=== PATIENT | male | born 1940 | race Caucasian/White ===

== ENCOUNTER → 2016-07-18 | Outpatient (CLI) | payer OTHER | END | disposition home or self-care (01) | LOC: GMAM 10:33 | PROVIDERS: ATTEND Family Medicine | DX: Z12.5 Encounter for screening for malignant neoplasm of prostate (principal); I10 Essential (primary) hypertension; E03.4 Atrophy of thyroid (acquired) | CPT/HCPCS: 84439; 84443; G0103 ==

== ENCOUNTER → 2016-07-19 | Outpatient (CLI) | payer OTHER | LOC: GMAM 16:41 | PROVIDERS: ATTEND Family Medicine | DX: M25.9 Joint disorder, unspecified (principal) ==

== ENCOUNTER → 2016-07-22 | Outpatient (CLI) | payer OTHER, MEDICARE ==
--- NOTE | 2016-07-22 10:56 | US ---
EXAM DESCRIPTION: Aorta CLINICAL HISTORY: 76 years,Male,AAA SCREEN TOBACCO USE COMPARISON: None TECHNIQUE: Multiple real-time sonographic images were obtained of the aorta and with duplex Doppler. FINDINGS: The abdominal aorta demonstrates mild diffuse plaques. No stenoses or aneurysms.]. The proximal aorta measures 2.1 cm. The mid aorta measures two cm. And the distal aorta measures 1.7 cm . No free fluid about the aorta. The common iliac arteries are unremarkable. IMPRESSION: Mild diffuse plaques in aorta. No aneurysms or stenoses. Electronically signed by: Rl Cancohla MD 07/22/2016 10:56 AM CDT
== END | disposition home or self-care (01) ==
LOC: US 08:13
PROVIDERS: ATTEND Family Medicine
DX: F17.210 Nicotine dependence, cigarettes, uncomplicated (principal)

== ENCOUNTER 2016-08-28 20:57 | Emergency (ER) | payer MEDICARE, OTHER ==
[2016-08-28] MEDS ORDERED: CYCLOBENZAPRINE HCL 5 MG TAB PO ONE (21:22)
[2016-08-28] MEDS ORDERED: ACETAMINOPHEN W/COD #3 TAB 1 EA TAB PO ONE (21:22)
[2016-08-28] MEDS ORDERED: CYCLOBENZAPRINE HCL 10 MG TAB ONE (21:24)
--- NOTE | 2016-08-28 21:25 | ED.PDOC ---
History of Present Illness - General Chief Complaint: Back Pain or Injury Stated Complaint: low back pain Time Seen by Provider: 08/28/16 20:57 Source: patient, RN notes reviewed, Vital Signs reviewed, family Exam Limitations: no limitations - History of Present Illness Initial Comments: Patient reports he bent over in the shower this morning and had a sudden onset of low back pain. The pain is worse when he is standing up and walking and better when he is laying down. No radiation of the pain. No numbness, tingling, weakness or incontinence. Daughter reports he is not standing up straight, he says that makes his back feel better. He has a history of L3-5 fusion with herniated discs @ L1 & 2. He does not normally have pain and does not usually take pain medications. He did take some Tylenol earlier today. Timing/Duration: 7-24 hours Quality/Severity: moderate Back Pain Location: lumbar spine, paraspinous muscles Back Pain Radiation: other - None Method of Injury/Prior Injury: other - bent over Improving Factors: rest, other - laying down Worsening Factors: movement - standing and walking Associated Symptoms: denies symptoms Allergies/Adverse Reactions: Allergies Morphine Allergy (Verified 08/28/16 21:25) Home Medications: Ambulatory Orders Aspirin [Baby Aspirin] 81 mg PO DAILY 07/05/14 Calcium 1 each PO BID 07/05/14 Calcium Polycarbophil Tabs [Fiber Con Tabs] 625 mg PO BID 07/05/14 Clonazepam 0.5 mg PO BEDTIME 07/05/14 Clopidogrel Bisulfate [Plavix] 75 mg PO QD 07/05/14 Co Q-10 1 each PO DAILY 07/05/14 Finasteride 5 mg PO DAILY 07/05/14 Levothyroxine Sodium [Synthroid] 75 mcg PO DAILY 07/05/14 Carl Red 1 each PO DAILY 07/05/14 Move Free 2 each PO DAILY 07/05/14 Pantoprazole Tablet [Protonix] 40 mg PO DAILY 07/05/14 Propranolol LA [Inderal LA] 80 mg PO BEDTIME 07/05/14 Simvastatin 20 mg PO BEDTIME 07/05/14 Super B-Complex 1 each PO DAILY 07/05/14 Tamsulosin 40 mg PO DAILY 07/05/14 Vitamin C 1,000 mg PO DAILY 07/05/14 Acetaminophen W/ Codeine [Tylenol W/ CODEINE #3] 1 ea PO Q6HR PRN #20 08/28/16 Cyclobenzaprine HCl [Flexeril] 5 mg PO Q8HR PRN #20 tab 08/28/16 Folic Xqsr-Fwfxparstg-Kcdfomdt [Folbic 2.5-25-2 mg] 1 tab PO DAILY 08/28/16 Review of Systems - Review of Systems Constitutional: States: no symptoms reported EENTM: States: no symptoms reported Respiratory: States: no symptoms reported Cardiology: States: no symptoms reported Gastrointestinal/Abdominal: States: no symptoms reported Musculoskeletal: States: see HPI, back pain Skin: States: other - Bruising of R hand/fingers due to fall earlier in the week. Denies any pain or limited ROM Neurological: States: no symptoms reported. Denies: numbness, paresthesia, tingling, weakness Past Medical History (General) - Patient Medical History Hx Seizures: No Hx Stroke: No Hx Dementia: No Hx Asthma: No Hx of COPD: No Hx Cardiac Disorders: Yes - Had cardiac stent placed one week ago Hx Congestive Heart Failure: No Hx Pacemaker: No Hx Hypertension: Yes Hx Thyroid Disease: Yes Hx Diabetes: No Hx Gastroesophageal Reflux: Yes Hx Renal Disease: No Hx of HIV: No Hx MRSA: No - Vaccination History Hx Influenza Vaccination: No - Social History Hx Tobacco Use: Yes Family Medical History - Family History Mother Family History: Unknown Physical Exam - Physical Exam General Appearance: Alert, Comfortable, No apparent distress, Well Developed, Well Groomed, Well Hydrated, Well Nourished Cardiovascular/Respiratory: regular rate, rhythm, no M/R/G, normal peripheral pulses, no JVD, normal breath sounds, no respiratory distress Peripheral Pulses: posterior tibialis,right: 2+, posterior tibialis,left: 2+ Back Exam: no vertebral tenderness, muscle spasm - Bilateral Lumbosacral paraspinous muscles., other - Negative straight leg raise bilaterally Extremity Exam: no evidence of injury, normal range of motion, non-tender, no pedal edema Neurologic: no motor/sensory deficits, alert, normal mood/affect, oriented x 3 Skin Exam: other - Bruising dorsum of R hand but no seymour tenderness and FROM Progress - Progress Progress: 08/28/16 21:30 Will give Tylenol #3 and Flexeril 5mg PO and see if symptoms improve. Patient is agreeable with plan. 08/28/16 22:01 Patient reports he is feeling much better. He is up and walking around without pain. Will d/c home with Rx for Tyl #3 and Flexeril Departure - Departure Clinical Impression: Muscle spasm of back Lumbosacral strain Qualifiers: Encounter type: initial encounter Qualified Code(s): S39.012A - Strain of muscle, fascia and tendon of lower back, initial encounter Contusion of hand, right Qualifiers: Encounter type: initial encounter Qualified Code(s): S60.221A - Contusion of right hand, initial encounter Time of Disposition: 22:02 Disposition: Discharge to Home or Self Care Condition: Good Departure Forms: ED Discharge - Pt. Copy, Patient Portal Self Enrollment Instructions: DI for Low Back Pain Diet: resume usual diet Activity: increase activity as tolerated Referrals: Waldo Rodriguez MD [Primary Care Provider] - 1-2 Weeks Prescriptions: Acetaminophen W/ Codeine [Tylenol W/ CODEINE #3] 1 ea PO Q6HR PRN #20 PRN Reason: Moderate To Severe Pain Cyclobenzaprine HCl [Flexeril] 5 mg PO Q8HR PRN #20 tab PRN Reason: Muscle Spasms Home Medications: Ambulatory Orders Aspirin [Baby Aspirin] 81 mg PO DAILY 07/05/14 Calcium 1 each PO BID 07/05/14 Calcium Polycarbophil Tabs [Fiber Con Tabs] 625 mg PO BID 07/05/14 Clonazepam 0.5 mg PO BEDTIME 07/05/14 Clopidogrel Bisulfate [Plavix] 75 mg PO QD 07/05/14 Co Q-10 1 each PO DAILY 07/05/14 Finasteride 5 mg PO DAILY 07/05/14 Levothyroxine Sodium [Synthroid] 75 mcg PO DAILY 07/05/14 Carl Red 1 each PO DAILY 07/05/14 Move Free 2 each PO DAILY 07/05/14 Pantoprazole Tablet [Protonix] 40 mg PO DAILY 07/05/14 Propranolol LA [Inderal LA] 80 mg PO BEDTIME 07/05/14 Simvastatin 20 mg PO BEDTIME 07/05/14 Super B-Complex 1 each PO DAILY 07/05/14 Tamsulosin 40 mg PO DAILY 07/05/14 Vitamin C 1,000 mg PO DAILY 07/05/14 Acetaminophen W/ Codeine [Tylenol W/ CODEINE #3] 1 ea PO Q6HR PRN #20 08/28/16 Cyclobenzaprine HCl [Flexeril] 5 mg PO Q8HR PRN #20 tab 08/28/16 Folic Xjed-Uqgvvjkagi-Rlhtmdnp [Folbic 2.5-25-2 mg] 1 tab PO DAILY 08/28/16
[2016-08-28 22:01] VITALS: BP 181/78; TEMP 97.2; O2SAT 96
== END 2016-08-28 22:09 | disposition home or self-care (01) ==
LOC: ER 20:57
DX: S39.012A Strain of muscle, fascia and tendon of lower back, initial encounter (principal); S60.221A Contusion of right hand, initial encounter; I10 Essential (primary) hypertension; E03.9 Hypothyroidism, unspecified; K21.9 Gastro-esophageal reflux disease without esophagitis; Z88.6 Allergy status to analgesic agent; Z79.899 Other long term (current) drug therapy; Z87.891 Personal history of nicotine dependence; Z98.61 Coronary angioplasty status; X50.1XXA Overexertion from prolonged static or awkward postures, initial encounter; Y93.E1 Activity, personal bathing and showering; Y92.002 Bathroom of unspecified non-institutional (private) residence as the place of occurrence of the external cause

== ENCOUNTER → 2016-12-28 | Outpatient (CLI) | payer OTHER | END | disposition home or self-care (01) | LOC: GMAM 10:18 | PROVIDERS: ATTEND Family Medicine | DX: E03.4 Atrophy of thyroid (acquired) (principal) ==

== ENCOUNTER → 2017-07-14 | Outpatient (CLI) | payer OTHER | LOC: GMAM 10:18 | PROVIDERS: ATTEND Family Medicine | DX: E03.9 Hypothyroidism, unspecified (principal) ==

== ENCOUNTER → 2018-01-12 | Outpatient (CLI) | payer OTHER | LOC: GMAM 10:55 | PROVIDERS: ATTEND Family Medicine | DX: E03.4 Atrophy of thyroid (acquired) (principal); Z12.5 Encounter for screening for malignant neoplasm of prostate | CPT/HCPCS: 84439; 84443; G0103 ==

== ENCOUNTER 2018-05-16 08:48 | Observation (INO) | payer OTHER ==
--- NOTE | 2018-05-16 09:06 | RAD ---
EXAM DESCRIPTION: Chest,1 View CLINICAL HISTORY: near syncope COMPARISON: July 05, 2014 IMPRESSION: Single AP portable upright view of the chest shows cardiac silhouette and pulmonary vasculature to be within normal limits. Mild calcifications of the thoracic aortic arch are seen. Lungs are normally aerated and clear. No obvious pleural effusion or pneumothorax is seen. Electronically signed by: Natan Barragan MD 05/16/2018 9:03 AM [facility]
--- NOTE | 2018-05-16 09:08 | ED.PDOC ---
History of Present Illness - General Chief Complaint: Syncope/Near Syncope Stated Complaint: Pt complained of being dixxy and hot and then weak Time Seen by Provider: 05/16/18 08:49 Source: patient Exam Limitations: no limitations - History of Present Illness Initial Comments: the patient is an 78-year-old male brought to the ER actually from one of the inpatient rooms. His has had a knee replacement and he was visiting her this morning when he had an episode with significant neurological changes. The patient had a prodrome of feeling hot and sweaty and flushed. This was followed by the patient becoming unresponsive to verbal stimuli. He was sitting up the whole time and his eyes were open. He however had very significant weakness of his right upper extremity and some weakness of the right lower extremity, all of which lasted maybe 2 minutes. He did not have any chest pain or palpitations. It does not appear that he went completely out. He has had a TIA in the past. He does take Plavix. By the time he was wheeled in a wheelchair from his 's room here to the emergency room he was completely back alert and oriented and neurologically intact. He is pleasant and cooperative and feeling fine at this time. 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 He is uncertain if he is on a water pill. We're currently trying to acquire his medication list. initial set of vital signs here in the emergency room appear essentially normal. Timing/Duration: momentarily Severity: severe Improving Factors: nothing Worsening Factors: nothing Associated Symptoms: diaphoresis, malaise, weakness Allergies/Adverse Reactions: Allergies Morphine Allergy (Verified 05/16/18 09:22) Home Medications: Ambulatory Orders Aspirin [Baby Aspirin] 81 mg PO DAILY 07/05/14 Calcium Polycarbophil Tabs [Fiber Con Tabs] 2 tablet PO BID 07/05/14 Clonazepam 0.5 mg PO BEDTIME 07/05/14 Clopidogrel Bisulfate [Plavix] 75 mg PO QD 07/05/14 Levothyroxine Sodium [Synthroid] 75 mcg PO DAILY 07/05/14 Move Free 2 each PO DAILY 07/05/14 Pantoprazole Tablet [Protonix] 40 mg PO DAILY 07/05/14 Propranolol LA [Inderal LA] 80 mg PO BEDTIME 07/05/14 Simvastatin 20 mg PO BEDTIME 07/05/14 Super B-Complex 1 each PO DAILY 07/05/14 Finasteride [Proscar] 5 mg PO DAILY 05/16/18 Tamsulosin HCl 0.4 mg PO DAILY 05/16/18 Review of Systems - Review of Systems Constitutional: States: malaise, weakness EENTM: States: no symptoms reported Respiratory: States: no symptoms reported Cardiology: States: no symptoms reported Gastrointestinal/Abdominal: States: no symptoms reported Genitourinary: States: no symptoms reported Musculoskeletal: States: no symptoms reported Skin: States: no symptoms reported Neurological: States: see HPI Endocrine: States: no symptoms reported All other Systems: No Change from Baseline Past Medical History (General) - Patient Medical History Hx Seizures: No Hx Stroke: No Hx Dementia: No Hx Asthma: No Hx of COPD: No Hx Cardiac Disorders: Yes - Had cardiac stent placed one week ago Hx Congestive Heart Failure: No Hx Pacemaker: No Hx Hypertension: Yes Hx Thyroid Disease: Yes Hx Diabetes: No Hx Gastroesophageal Reflux: Yes Hx Renal Disease: No Hx of HIV: No Hx MRSA: No - Vaccination History Hx Tetanus, Diphtheria Vaccination: No - Unknown last update Hx Influenza Vaccination: No Hx Pneumococcal Vaccination: Yes - Social History Hx Tobacco Use: Yes Hx Alcohol Use: Yes - occasional Hx Substance Use: No Hx Substance Use Treatment: No Hx Depression: No Hx Physical Abuse: No Hx Emotional Abuse: No Hx Suspected Abuse: No Family Medical History - Family History Mother Family History: Unknown Living Status: Physical Exam - Physical Exam General Appearance: Alert, Comfortable, No apparent distress Eye Exam: bilateral normal Ears, Nose, Throat: hearing grossly normal, normal ENT inspection, normal p harynx Neck: full range of motion, supple Respiratory: lungs clear, normal breath sounds, no respiratory distress, no accessory muscle use Cardiovascular/Chest: normal peripheral pulses, regular rate, rhythm, no edema Peripheral Pulses: radial,right: 2+, radial,left: 2+, dorsalis pedis,right: 2+, dorsalis pedis,left: 2+ Gastrointestinal/Abdominal: non tender, soft Rectal Exam: deferred Back Exam: no CVA tenderness, no vertebral tenderness Extremity: normal range of motion, non-tender, normal inspection, no pedal edema, normal capillary refill Neurologic: 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 coach II-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 nml as tested, alert, normal mood/affect, oriented x 3 Skin Exam: normal color Progress - Results/Orders Results/Orders: Vital Signs - 24 hr 05/16/18 05/16/18 05/16/18 08:50 08:57 09:45 Temperature 98.5 F Pulse Rate [ 57 L 57 L 55 L Right Radial] Respiratory 18 18 Rate Blood Pressure 129/69 114/61 [Right Arm] O2 Sat by Pulse 95 97 Oximetry 05/16/18 05/16/18 05/16/18 09:47 09:49 10:00 Temperature Pulse Rate [ 56 L 59 L 55 L Right Radial] Respiratory 20 20 20 Rate Blood Pressure 134/64 135/68 118/64 [Right Arm] O2 Sat by Pulse 99 99 100 Oximetry 05/16/18 11:00 Temperature Pulse Rate [ 52 L Right Radial] Respiratory 20 Rate Blood Pressure 134/66 [Right Arm] O2 Sat by Pulse 98 Oximetry Laboratory Tests 05/16/18 05/16/18 05/16/18 08:35 08:35 08:35 WBC 7.3 RBC 5.40 Hgb 16.0 Hct 47.7 MCV 88.4 MCH 29.6 MCHC 33.5 RDW 14.2 Plt Count 166 MPV 7.1 L Absolute Neuts (auto) 4.70 Absolute Lymphs (auto) 1.60 Absolute Monos (auto) 0.80 Absolute Eos (auto) 0.20 Absolute Basos (auto) 0.00 Neutrophils % 63.7 Lymphocytes % 21.7 Monocytes % 11.6 H Eosinophils % 2.6 Basophils % 0.4 PT 10.6 INR 1.06 PTT (SP) 21.6 L Sodium 138 Potassium 3.9 Chloride 105 Carbon Dioxide 23 Anion Gap 13.9 BUN 21 H Creatinine 1.04 BUN/Creatinine Ratio 20.2 H POC Glucose Random Glucose 117 H Serum Osmolality 279.7 Lactic Acid Calcium 9.0 Magnesium 1.9 Total Bilirubin 0.6 AST 24 ALT 18 Alkaline Phosphatase 54 Creatine Kinase 73 CK-MB (CK-2) 3.4 CK-MB (CK-2) % Not Reportable Troponin I < 0.02 B-Natriuretic Peptide 114.0 H Serum Total Protein 7.0 Albumin 4.3 Globulin 2.7 Albumin/Globulin Ratio 1.6 TSH 6.01 H 05/16/18 05/16/18 08:35 08:52 WBC RBC Hgb Hct MCV MCH MCHC RDW Plt Count MPV Absolute Neuts (auto) Absolute Lymphs (auto) Absolute Monos (auto) Absolute Eos (auto) Absolute Basos (auto) Neutrophils % Lymphocytes % Monocytes % Eosinophils % Basophils % PT INR PTT (SP) Sodium Potassium Chloride Carbon Dioxide Anion Gap BUN Creatinine BUN/Creatinine Ratio POC Glucose 99 Random Glucose Serum Osmolality Lactic Acid 1.9 Calcium Magnesium Total Bilirubin AST ALT Alkaline Phosphatase Creatine Kinase CK-MB (CK-2) CK-MB (CK-2) % Troponin I B-Natriuretic Peptide Serum Total Protein Albumin Globulin Albumin/Globulin Ratio TSH EKG shows mild sinus bradycardia with a right bundle branch block. Inverted T waves in aVL and V2. Otherwise no ST segment or T-wave changes concerning for immediate ischemia. Fairly normal axis. Chest x-ray shows no evidence of any pneumothorax, large infiltrate or overt fluid overload. the patient is an 78-year-old male presenting after a near syncopal episode that had some transient neurological deficits on the right side. The patient is back to normal and was within a minute or 2 of the event. He has had a history of near syncopal events and has had his blood pressure medications reduced. He does still take prostate medications and atenolol which can drive his blood pressure down. He has received a liter of IV fluids here. He is feeling much better. He does still get a little bit dizzy with standing. The patient is going to be admitted and have his blood pressure medications held. He does understand this will likely make his tremor worse being that the atenolol was also being used for that. [facility] So far laboratory work is relatively reassuring. He may yet need to start treatment for some mild hypothyroidism in the near future. So far no evidence of any significant arrhythmia on telemetry monitoring. Chest x-ray and EKG are reassuring otherwise. If reducing the patient's blood pressure medications failed to prevent recurrence of these types of episodes then intracranial arteriography of some form may be warranted. Departure - Departure Clinical Impression: Syncope, near Disposition: Admit Patient Condition: Fair Departure Forms: ED Discharge - Pt. Copy, Patient Portal Self Enrollment Referrals: Waldo Rodriguez MD [Primary Care Provider] - 1-2 Weeks Home Medications: Ambulatory Orders Aspirin [Baby Aspirin] 81 mg PO DAILY 07/05/14 Calcium Polycarbophil Tabs [Fiber Con Tabs] 2 tablet PO BID 07/05/14 Clonazepam 0.5 mg PO BEDTIME 07/05/14 Clopidogrel Bisulfate [Plavix] 75 mg PO QD 07/05/14 Levothyroxine Sodium [Synthroid] 75 mcg PO DAILY 07/05/14 Move Free 2 each PO DAILY 07/05/14 Pantoprazole Tablet [Protonix] 40 mg PO DAILY 07/05/14 Propranolol LA [Inderal LA] 80 mg PO BEDTIME 07/05/14 Simvastatin 20 mg PO BEDTIME 07/05/14 Super B-Complex 1 each PO DAILY 07/05/14 Finasteride [Proscar] 5 mg PO DAILY 05/16/18 Tamsulosin HCl 0.4 mg PO DAILY 05/16/18 Decision To Admit - Decistion To Admit Decision to Admit Reason: Medical Nature Decision to Admit Date: 05/16/18 Decision to Admit Time: 12:04
[2018-05-16] MEDS ORDERED: SODIUM CHLORIDE 0.9% 1000ML 500 ML IVS ONE (09:17)
--- NOTE | 2018-05-16 10:46 | CT ---
EXAM DESCRIPTION: Head: Computed Tomography. CLINICAL HISTORY: near syncope with transient rt sided weakness COMPARISON: CT scan of the head 05/29/2009. TECHNIQUE: Non-helical axial scans through the skull and brain, at 2.5 x 20 mm intervals, non-contrast. Coronal and sagittal 2.0 mm reconstructions. Total Exam DLP: 752.48 mGy-cm. This exam was performed according to our departmental dose-optimization program which includes automated exposure control, adjustment of the mA and/or kV according to patient size and/or use of iterative reconstruction technique; to reduce radiation dose to as low as reasonably achievable (ALARA). FINDINGS: No hemorrhage, no mass-effect, and no midline shift. Low-density in the frost radiata abutting the frontal horns of the lateral ventricles bilaterally more right than left at the level of the frontal horns. Extending bilaterally into the frontal lobe frost radiata. Stable since the prior study. Also low-density in the anterior right basal ganglia are stable. Calcifications in the bilateral basal ganglia stable. Stable low density most likely cortical atrophy in the inferior left temporal lobe with a small calcification. Vascular calcifications anterior circulation physiologic calcifications in the pineal gland and choroid plexus. No effacement or displacement of the ventricles, CSF spaces, or subdural spaces. No extra axial fluid collection or hemorrhage. No gross abnormalities of the bony calvarium. Included paranasal sinuses and mastoid air cells are well - aerated. IMPRESSION: 1. No hemorrhage, no mass effect, no midline shift. Bilateral regions of white matter low-density are chronic and stable and most likely related to cerebral microvascular disease and aging. Central atrophy more on the right than left and cortical atrophy is bilaterally symmetric and stable. 2. CT scans are insensitive for detecting small CVAs in the first 24 hours after onset. Evaluation of the brain stem is also limited. If symptoms persist, consider NON-EMERGENT MRI scan of the brain with diffusion imaging. Electronically signed by: Darrius Busby MD 05/16/2018 10:43 AM [employer]
--- NOTE | 2018-05-16 12:38 | HP ---
SUPERVISING PHYSICIAN: Rome Guido M.D. CHIEF COMPLAINT: Syncopal episode. HISTORY OF PRESENT ILLNESS: This is an 78 year-old male patient who was visiting his in the hospital. She had knee surgery yesterday. He felt hot and sweaty as well as flushed. The patient became unresponsive to verbal stimuli but he was sitting up the whole time. His eyes were open. He had significant weakness to his right side which lasted less than 2 minutes. According to witnesses, he did not have loss of complete consciousness. He has had transient ischemic attacks in the past and he does take Plavix. He was assisted into a wheelchair and taken to the Emergency Room, and at that point he was alert and oriented and neurologically intact. His initial vital signs were temperature 98.5, heart rate 57, blood pressure 129/69, respiratory rate 18, O2 sat was 95% on room air. Lab was completed and his CBC was unremarkable. Coags were unremarkable. Electrolytes were basically within normal limits. He had an initial blood glucose of 99, with his lab work it was 117. Lactic acid was 1.9. Liver enzymes were within normal limits. BNP was 14 and TSH was 6.01. Urinalysis was within normal limits. Chest x-ray showed single AP portable upright view of the chest shows cardiac silhouette and pulmonary vasculature to be within normal limits. Lungs are normally aerated and clear with mild calcifications of the thoracic arch. No obvious pleural effusion or pneumothorax seen. Head CT shows no hemorrhage. No mass effect. No midline shift. Bilateral regions of white matter low density are chronic and stable, and most likely related to cerebral microvascular disease and aging. Central atrophy more on the right than left and cortical atrophy is bilaterally symmetric and stable. I was called for hospital admission. PAST MEDICAL HISTORY: 1. Carotid artery stenosis. 2. Coronary artery disease. 3. Hyperlipidemia. 4. Hypertension. 5. Chronic obstructive pulmonary disease. 6. Gastroesophageal reflux disease. 7. Peptic ulcer disease. 8. Urinary retention. 9. Degenerative disc disease. 10. Osteoarthritis. 11. Transient ischemic attacks. PAST SURGICAL HISTORY: 1. Cholecystectomy. 2. Tonsillectomy. 3. Appendectomy. 4. Coronary artery stent placement. 5. Back surgery. 6. Cataract surgery. 7. Carotid endarterectomy. OUTPATIENT MEDICATIONS: 1. Finasteride. 2. Propranolol. 3. Tamsulosin. 4. Calcium polycarbophil tabs. 5. Dexq-qof-qxeuzzu laxative. 6. Pantoprazole. 7. Clonazepam. 8. Levothyroxine. 9. Simvastatin. ALLERGIES: MORPHINE. SOCIAL HISTORY: He is . He lives in [place]. He quit smoking in 1973. He drinks alcoholic beverages rarely. Denies any illicit drug use. REVIEW OF SYSTEMS: Negative except as per History of Present Illness. Presently no symptoms persist. PHYSICAL EXAMINATION: VITAL SIGNS: Temperature 97.8, heart rate 55, blood pressure 152/68, respiratory rate 18, O2 sat 98% on room air. GENERAL: This is an 78 year-old male patient who is sitting up in a chair. He is in no acute distress. HEENT: Normocephalic and atraumatic. Pupils are equal and reactive. Oropharynx is clear. NECK: Supple without mass. RESPIRATORY: Essentially clear to auscultation bilaterally. CHEST: There is equal rise and fall of the chest with inspiration and expiration. CARDIOVASCULAR: Bradycardic rate, regular rhythm. It is to be noted on the conveyor monitor that it is sinus bradycardia with occasionally his rate is in the mid to low 40s. GASTROINTESTINAL: Abdomen is soft, nondistended, non-tender. Bowel sounds are positive. EXTREMITIES: No clubbing, cyanosis or edema. NEUROLOGIC: He is awake, alert and oriented times three. Cranial nerves II-XII are grossly intact. SKIN: Warm and dry. LABORATORY: Labs and films are as per History of Present Illness with the exception of a carotid artery ultrasound was completed and impression was: 1) Doppler evaluation of the bilateral carotid systems and vertebral arteries show no hemodynamically significant stenosis. 2) No significant amount of plaque seen in the carotid arteries bilaterally. Bilateral vertebral arteries showed antegrade cephalad flow. All other labs and films have been reviewed via the EMR. ASSESSMENT: 1. Syncopal episode without loss of consciousness. 2. Transient ischemic attack with initial right sided weakness but symptoms resolved shortly thereafter. 3. Bradycardia on Propranolol prescribed many years ago for essential tremors. His heart rate is mostly in the 50s, but on the conveyor monitor his heart rate does drop to the low 40s. 4. Chronic obstructive pulmonary disease without exacerbation. 5. Hypothyroidism with TSH at 6.01. 6. History of hypertension. 7. Gastroesophageal reflux disease. 8. Hyperlipidemia. 9. Carotid artery stenosis. 10. Coronary artery disease. 11. Urinary retention. 12. History of transient ischemic attacks. 13. Remote history of essential tremors on Propranolol. PLAN: We will place the patient in observation. He will have frequent neuro checks and will be on the conveyor monitor. I will hold his Propranolol for now. He may need to be put on a different classification of medicine for his hypertension and a lower dose of Propranolol for the tremors, or the Propranolol may need to be discontinued completely and to have Dr. Rodriguez, his primary care physician, address his tremors at his followup appointment. I have started him on a PPI for ulcer prophylaxis as well as Lovenox for DVT prophylaxis. He is on Plavix routinely and I have restarted his home medications as well as his statin. I will hold his Proscar and Tamsulosin for now. I will restart it tomorrow if there are no complications. I have also decreased his Clonazepam to 0.25 at bedtime. I will hold on changing his Synthroid for now and let Dr. Rodriguez address that as and outpatient. I have done routine labs for in the morning. Will continue to follow him closely and follow as needed. #[id number] [facility]
[2018-05-16] MEDS ORDERED: SODIUM CHLORIDE 0.9% (FLUSH) 10 ML SYG IV PRN (14:02)
[2018-05-16] MEDS ORDERED: ACETAMINOPHEN 325 MG TAB PO PRN (14:02)
[2018-05-16] MEDS ORDERED: ONDANSETRON INJ 4 MG/2 ML VIAL IV PRN (14:02)
[2018-05-16] MEDS ORDERED: IV SET AND CAP CHANGE INJ INJ SCH (14:30)
--- NOTE | 2018-05-16 16:12 | US ---
EXAM DESCRIPTION: Carotid Duplex: ULTRASOUND. CLINICAL HISTORY: 78 years Male TIA. History of right endarterectomy. COMPARISON: CT scan of the head on this visit. TECHNIQUE: Transcutaneous scanning utilizing wilson-scale and Doppler modes to evaluate the bilateral carotid systems and vertebral arteries. Percentage of diameter of stenosis or no stenosis recorded will be based upon NASCET criteria. FINDINGS: Peak systolic/end diastolic (CM-Sec) CCA Right 75/12 Left 91/13. ICA Right proximal 40/0, distal 82/13. Left proximal 89/12, mid 88/17. Vertebral Right 65/10 Left 67/15. ECA (PS Only) Right 141 left 101. ICA/CCA peak systolic ratio: Right 1.1 Left 1.0 ICA/CCA end diastolic ratio: Right 1.1 Left 0.9 Vertebral arteries: antegrade flow. Comments Comments: Right CCA bulb area stenosis 32%, diameter stenosis 36%. Atherosclerotic calcification in the right CCA bulb with less involvement of the right ICA proximally and the left CCA bulb and ICA. Spectral broadening in the bilateral proximal ICAs. IMPRESSION: 1. Doppler evaluation of the bilateral carotid systems and vertebral arteries shows no hemodynamically significant stenoses. 2. No significant amount of plaque seen in the carotid arteries bilaterally. Bilateral vertebral arteries showed antegrade-cephalad flow. Electronically signed by: Darrius Busby MD 05/16/2018 4:09 PM [facility] [employer]
[2018-05-16] MEDS: CLOPIDOGREL 75 MG TAB PO SCH (16:16)
[2018-05-16] MEDS: ENOXAPARIN SODIUM 40 MG/0.4 ML SYG SUBCU SCH (16:17)
[2018-05-16] MEDS ORDERED: LEVOTHYROXINE SODIUM 0.075 MG TAB ONE (20:33)
[2018-05-16] MEDS ORDERED: PANTOPRAZOLE SODIUM IV 40 MG VIAL ONE (20:34)
[2018-05-16] MEDS: SIMVASTATIN 20 MG TAB PO SCH (21:11)
[2018-05-16] MEDS: SODIUM CHLORIDE 0.9% (FLUSH) 10 ML SYG IV SCH (21:13)
[2018-05-17] MEDS: PANTOPRAZOLE SODIUM IV 40 MG VIAL IV SCH (06:08)
[2018-05-17] MEDS: LEVOTHYROXINE SODIUM 0.075 MG TAB PO SCH (06:08)
[2018-05-17] MEDS: CLOPIDOGREL 75 MG TAB PO SCH (08:13)
[2018-05-17] MEDS: ASPIRIN (CHEWABLE) 81 MG TAB PO SCH (08:13)
[2018-05-17] MEDS: SODIUM CHLORIDE 0.9% (FLUSH) 10 ML SYG IV SCH ×2 (08:13→20:33)
[2018-05-17] MEDS: FINASTERIDE 5 MG TAB PO SCH (10:18)
[2018-05-17] MEDS: TAMSULOSIN 0.4 MG CAP PO SCH (10:19)
[2018-05-17] MEDS: PROPRANOLOL HCL 20 MG TAB PO SCH ×2 (11:07→20:33)
[2018-05-17] MEDS: ENOXAPARIN SODIUM 40 MG/0.4 ML SYG SUBCU SCH (14:51)
--- NOTE | 2018-05-17 18:40 | PN ---
DATE: 05/17/18 SUPERVISING PHYSICIAN: Rome Guido M.D. SUBJECTIVE: The patient is lying in his bed eating his meal. He has no complaints of dizziness or syncope. He has had no further episodes of weakness since his episode yesterday. I advised him of some changes in his medication. His daughter was at the bedside and she understood these new recommendations. Otherwise he denies any chest pain, nausea or vomiting. OBJECTIVE: VITAL SIGNS: His temperature is 97.8, heart rate 53. His lowest heart rate since early this morning has been 53. Blood pressure 120/73, respiratory rate 18, O2 sat 95% on room air. RESPIRATORY: Essentially clear to auscultation bilaterally. CARDIAC: Regular rate and rhythm. GASTROINTESTINAL: Abdomen is soft, nondistended, non-tender. Bowel sounds are positive. EXTREMITIES: No clubbing, cyanosis or edema. NEUROLOGIC: He is awake, alert and oriented times three. LABORATORY: CBC is unremarkable. Electrolytes are basically within normal limits with his BUN being 19 and creatinine at 0.64. Triglycerides are 89, cholesterol 130. LDL is 76 and HDL is 39. All other labs and films have been reviewed via the EMR. ASSESSMENT: 1. Syncopal episode without loss of consciousness. 2. Transient ischemic attack with initial right sided weakness but symptoms resolved shortly thereafter. 3. Bradycardia on Propranolol prescribed many years ago for essential tremors. His heart rate is mostly in the 50s. On admission his heart rate dropped into the low 40s, but his Propranolol dosage has been changed and he has had no further reports of bradycardia in the 40s. 4. Chronic obstructive pulmonary disease without exacerbation. 5. Hypothyroidism with TSH at 6.01. 6. History of hypertension. 7. Gastroesophageal reflux disease. 8. Hyperlipidemia. 9. Carotid artery stenosis. 10. Coronary artery disease. 11. Urinary retention. 12. History of transient ischemic attacks. 13. Remote history of essential tremors on Propranolol. PLAN: Will continue present supportive care. He has had no neurologic symptoms today and I have discontinued his 80 mg of long-acting Propranolol, and I have changed him to 40 mg of immediate release Propranolol twice a day. Will monitor his heart rate. His blood pressure has gotten up some after we stopped the Propranolol and his blood pressure is much better controlled since we have restarted it. Initially Dr. Rodriguez, his primary care physician, had recommended adding Lisinopril if needed, but I feel like the Propranolol at 40 mg b.i.d. will have good blood pressure control as well as for his tremors. If he continues to improve overnight and has no problems with his heart rate or blood pressure, I will discharge him tomorrow with close followup with Dr. Rodriguez. He may benefit from having a 48 hour Holter monitor to make sure that there are no further incidences of bradycardia. We will follow him as needed and treat as needed. #[id number] [facility]
[2018-05-17] MEDS: SIMVASTATIN 20 MG TAB PO SCH (20:34)
[2018-05-18] MEDS: LEVOTHYROXINE SODIUM 0.075 MG TAB PO SCH (06:20)
[2018-05-18] MEDS: PANTOPRAZOLE SODIUM IV 40 MG VIAL IV SCH (06:20)
[2018-05-18] MEDS: PROPRANOLOL HCL 20 MG TAB PO SCH (08:34)
[2018-05-18] MEDS: FINASTERIDE 5 MG TAB PO SCH (08:34)
[2018-05-18] MEDS: CLOPIDOGREL 75 MG TAB PO SCH (08:35)
[2018-05-18] MEDS: ASPIRIN (CHEWABLE) 81 MG TAB PO SCH (08:35)
[2018-05-18] MEDS: TAMSULOSIN 0.4 MG CAP PO SCH (08:35)
[2018-05-18] MEDS: SODIUM CHLORIDE 0.9% (FLUSH) 10 ML SYG IV SCH (08:35)
[2018-05-18] MEDS ORDERED: PROPRANOLOL LA 80 MG CAP PO SCH (09:00)
[2018-05-18] MEDS ORDERED: CETIRIZINE HCL 10 MG TAB PO SCH (09:30)
[2018-05-18 11:56] VITALS: BP 162/80; TEMP 97.6; O2SAT 99
--- NOTE | 2018-05-18 13:29 | DS ---
SUPERVISING PHYSICIAN: Rome Guido MD DISCHARGE DIAGNOSIS: 1. Syncopal episode without loss of consciousness. 2. Transient ischemic attack with initial right sided weakness but symptoms resolved shortly thereafter. 3. Bradycardia on propranolol prescribed many years ago for essential tremors. His heart rate is mostly in the 50s. It does occasionally drop to the low 40s, but he is asymptomatic whit it. His propranolol dosage was decreased to 40 mg b.i.d. 4. Chronic obstructive pulmonary disease without exacerbation. 5. Hypothyroidism with TSH at 6.01. 6. History of hypertension. 7. Gastroesophageal reflux disease. 8. Hyperlipidemia. 9. Carotid artery stenosis. 10. Coronary artery disease. 11. Urinary retention. 12. History of transient ischemic attacks. 13. Remote history of essential tremors on propranolol. HISTORY OF PRESENT ILLNESS: This is an 78-year-old male patient who was visiting his in the hospital. She had knee surgery here at the hospital the day before. He felt hot and sweaty as well as flushed. The patient became unresponsive to verbal stimuli, but he was sitting up the whole time. His eyes were open. He had significant weakness initially to his right side which lasted less than 2 minutes. According to witnesses, he did not have loss of complete consciousness. He has had transient ischemic attacks in the past and he does take Plavix. He was assisted into a wheelchair and taken to the Emergency Room, and at that point he was alert and oriented and neurologically intact. His initial vital signs were temperature 98.5, heart rate 57, blood pressure 129/69, respiratory rate 18, O2 sat was 95% on room air. Lab was completed and his CBC and Coags were unremarkable. Electrolytes were basically within normal limits. He had an initial blood glucose of 99, with his lab work it was 117. Lactic acid was 1.9. Liver enzymes were within normal limits. BNP was 14 and TSH was 6.01. Urinalysis was unremarkable. Chest x-ray showed cardiac silhouette and pulmonary vasculature to be within normal limits. Lungs are normally aerated and clear with mild calcifications of the thoracic arch. No obvious pleural effusion or pneumothorax seen. Head CT showed no hemorrhage. No mass effect. No midline shift. Bilateral regions of white matter low density are chronic and stable, and most likely related to cerebral microvascular disease and aging. Central atrophy more on the right than left and cortical atrophy is bilaterally symmetric and stable. HOSPITAL COURSE: He was placed on the nurse monitoring and neuro checks were done. Neuro checks were okay and he has no further neurologic symptoms. Initially, his propranolol was held. He was given propranolol many years ago for essential tremors. His heart rate remained in the 50s and 60s. I spoke with his primary care physician, Dr. Rodriguez, and he and I agreed that the patient should not be completely taken off the propranolol as his blood pressure was slightly elevated. We re-started his propranolol to 40 mg b.i.d. Again, his heart rate frequently dropped into the upper 40s, but he was asymptomatic. His blood pressures were within normal limits. His vital signs now are temperature 97.6, heart rate 48, blood pressure 162/80, respiratory rate 16, O2 saturation 98% on room air. He has no further neurologic symptoms during his stay. He tolerated the change in propranolol without any problems. His blood pressure stabilized on the propranolol. He may need some additional hypertension medication such as an CAROLANN inhibitor, but I will let his primary care physician, Dr. Rodriguez, evaluate him after discharge. LABORATORY: His CBCs were unremarkable. Electrolytes were within normal limits. Creatinine on admission was 1.04 and came down to 0.64. Triglycerides were 89, LDL 76.2, HDL 39. RADIOLOGY: Chest x-ray and head CT are per the history of present illness. Carotid ultrasound was performed and showed 1) Doppler evaluation of the bilateral carotids and vertebral arteries show no hemodynamically significant stenosis. 2) No significant amount of plaque seen in the carotid arteries bilaterally. Bilateral vertebral arteries show antegrade-cephalad flow. DISCHARGE PLAN: The patient will be discharged home in stable condition. He is to resume his previous diet and activities. He is also to resume his home medications with the exception of the propranolol. His previous propranolol has been disconnected and I have sent in a prescription for propranolol 40 mg b.i.d. I have also put the patient on a Holter monitor. Dr. Rodriguez can review that at the patient's followup appointment. All of his low heart rates have been asymptomatic with a stable blood pressure and he has no complaints of dizziness, weakness since admission. He is to return to the hospital or followup with Dr. Rodriguez's office for any problems or complications. His followup appointment with Dr. Rodriguez is on 05/30/18 at 2:15 PM. DISCHARGE MEDICATIONS: 1. Protonix. 2. FiberCon tabs. 3. Clonazepam. 4. Synthroid. 5. Baby aspirin. 6. Plavix. 7. Super B Complex. 8. Simvastatin. 9. Move Free. 10. Finasteride. 11. Tamsulosin. 12. Propranolol. #[id number] MTDD
== END 2018-05-18 13:45 | disposition home or self-care (01) ==
LOC: ER 08:48 → MS 12:37
PROVIDERS: ADMIT Nurse Practitioner Acute Care; ATTEND Nurse Practitioner Acute Care
DX: G54.9 Nerve root and plexus disorder, unspecified (principal); R55 Syncope and collapse; R00.1 Bradycardia, unspecified; J44.9 Chronic obstructive pulmonary disease, unspecified; E03.9 Hypothyroidism, unspecified; I10 Essential (primary) hypertension; K21.9 Gastro-esophageal reflux disease without esophagitis; E78.5 Hyperlipidemia, unspecified; I25.10 Atherosclerotic heart disease of native coronary artery without angina pectoris; R33.9 Retention of urine, unspecified; G25.0 Essential tremor; I45.10 Unspecified right bundle-branch block; Z79.02 Long term (current) use of antithrombotics/antiplatelets; Z79.899 Other long term (current) drug therapy; Z88.6 Allergy status to analgesic agent; Z86.73 Personal history of transient ischemic attack (TIA), and cerebral infarction without residual deficits; Z87.11 Personal history of peptic ulcer disease; Z95.5 Presence of coronary angioplasty implant and graft; Z87.891 Personal history of nicotine dependence
CPT/HCPCS: 96374; 96376; 96372 ×2; J7030; J1650 ×2; 80048; 82553; 80053; 82948; 80061; 36415; 81001; 85025 ×2; 82550; 83735 ×2; 85730; 85610; 84443; 84484; 83880; 36416; 83605; 71045; 70450; 93880; 94760 ×3; 93225; 99285; 93005; G0378

== ENCOUNTER → 2018-05-30 | Outpatient (CLI) | payer OTHER | LOC: GMAM 18:01 | PROVIDERS: ATTEND Family Medicine | DX: E03.9 Hypothyroidism, unspecified (principal) ==

== ENCOUNTER → 2018-06-04 | Outpatient (CLI) | payer OTHER ==
--- NOTE | 2018-06-04 15:04 | MRI ---
EXAM DESCRIPTION: Brain w/wo Contrast: Magnetic Resonance Imaging. CLINICAL HISTORY: 78 years Male TRANSIENT ISCHEMIC ATTACK COMPARISON: Mild brain 11/17/2015 TECHNIQUE: Multiplanar, high-field MRI, multiple conventional sequences, without and with gadolinium IV contrast. No adverse reactions. Multiple axial diffusion sequences. FINDINGS: Bilateral confluent and multifocal hyperintense FLAIR and T2-weighted signal in the periventricular white matter of the frost radiata and also bilateral centrum semiovale frontal parietal and occipital lobes. There are also bilateral scattered foci of involvement of the subcortical white matter in the frontal and parietal lobes. This is relatively symmetric. Involvement has progressed bilaterally since the prior study, predominantly in the frost radiata. No evidence of intra-axial hemorrhage or abnormal contrast enhancement, or diffusion restriction in these lesions.. Possible involvement of the superior bilateral basal ganglia, stable since the prior study. No hemorrhage, no cerebral edema, no mass-effect. Normal contrast enhancement with no diffusion restriction. Small focus of hyperintense FLAIR signal in the brainstem abutting the right anterior fourth ventricle and the right inferior cerebellar peduncle. Seen only on the FLAIR sequence; not seen on the prior study possibly artifact. No hemorrhage, no cerebral edema, no mass-effect. Normal contrast enhancement. Concordance of the diffusion and non-diffusion sequences with no evidence of acute or subacute infarction. Cortical sulci, ventricles, and other CSF spaces, and the subdural spaces are normally configured for patients age. No effacement or displacement. No midline shift. No extra-axial hemorrhage. Normal contrast enhancement. Normal flow signal void in the major vessels of the [place], and the venous sinuses. IACs are symmetric bilaterally. Normal signal in the bilateral mastoid air cells. No mass effect in the bilateral Cerebellopontine angles. Normal contrast enhancement. Pituitary gland occupies post of the sella. Normal contrast enhancement. Base of the cerebellar tonsils is at the level of the foramen magnum. Minimal mucoperiosteal thickening in the bilateral paranasal sinuses. The bony calvarium is intact. IMPRESSION: 1. 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 No hemorrhage, no mass effect, no abnormal contrast enhancement and no diffusion restriction. 2. Questionable lesion at the junction of the right medulla and inferior right cerebellar peduncle. Seen only on FLAIR sequence and not seen previously, possible artifact. No hemorrhage or abnormal contrast enhancement or diffusion restriction. 3. Minimal chronic sinusitis. Electronically signed by: Darrius Busby MD 06/04/2018 3:00 PM CDT
== END ==
LOC: MRI 08:06
PROVIDERS: ATTEND Family Medicine
DX: G45.9 Transient cerebral ischemic attack, unspecified (principal)

== ENCOUNTER → 2018-10-29 | Outpatient (CLI) | payer OTHER | LOC: GMAM 10:53 | PROVIDERS: ATTEND Family Medicine | DX: E03.9 Hypothyroidism, unspecified (principal); I10 Essential (primary) hypertension; E78.2 Mixed hyperlipidemia ==

== ENCOUNTER → 2019-01-23 | Outpatient (CLI) | payer OTHER ==
--- NOTE | 2019-01-23 11:32 | CT ---
EXAM DESCRIPTION: Head CLINICAL HISTORY: DIZZINESS, AND GIDDINESS COMPARISON: Previous CT head May 16, 2018 TECHNIQUE: Noncontrast head CT was performed with routine protocol. FINDINGS: Normal wlison-white matter differentiation. Ventricles and sulci are prominent consistent with age-related cerebral volume loss. Low density areas in the white matter consistent with chronic microvascular ischemic disease. No change in pattern compared to the previous study. Right calvarial stephane holes are noted as on previous study. No subdural hematoma. No high density hemorrhage, focal edema or shift of the midline. No sulcal effacement. Normal orbital contents. Basilar cisterns appear clear. Intact calvarium with no fracture or lytic lesion. Normal aeration of tympanic cavities and mastoid air cells. No fluid levels in the paranasal sinuses. Skull base appears intact. Symmetrical internal auditory canals. IMPRESSION: No acute intracranial pathologic process. This exam was performed according to our departmental dose-optimization program, which includes automated exposure control, adjustment of the mA and/or kV according to patient size and/or use of iterative reconstruction technique. Total DLP equals 859.97 mGycm. Electronically signed by: Joe Medellin MD 01/23/2019 11:31 AM CDT
== END ==
LOC: MRI 10:53
PROVIDERS: ATTEND Family Medicine
DX: R42 Dizziness and giddiness (principal)

== ENCOUNTER → 2019-02-12 | Outpatient (CLI) | payer OTHER ==
--- NOTE | 2019-02-12 14:26 | CT ---
Study: CT of the Lumbar Spine. Indication: SPINAL STENOSIS LUMBAR REGION Technique: Axial CT images of the lumbar spine acquired without intravenous contrast. Coronal and sagittal reformats performed. This exam was performed according to our departmental dose-optimization program, which includes automated exposure control, adjustment of the mA and/or kV according to patient size and/or use of iterative reconstruction technique. Comparison: None. Findings: Bilateral L3, L4, L5 pedicle screws with posterior vertical stabilization rods. L4-L5 and L5-S1 interbody fusion constructs and laminectomies noted. Solid fusion across the disc spaces and bilateral facet joints at both of these levels. L1-L2: Mild disc space height loss. 2 mm disc bulge. Mild bilateral neural foraminal narrowing. No spinal canal narrowing. Moderate bilateral facet arthrosis. L2-L3: Severe disc space height loss and ex vacuo disc phenomenon. Pronounced endplate remodeling and most pronounced at the L2 inferior endplate which is slightly truncated. This is likely chronic. No appreciable acute fracture plane. 4 mm disc osteophyte complex. Severe bilateral facet arthrosis. Moderate ligament flavum buckling. At least moderate spinal canal narrowing present. Severe bilateral neural foraminal narrowing. L3-L4: Postsurgical changes as above without stenosis. L4-L5: Postsurgical changes as above. Mild bony foraminal narrowing, left greater than right. No spinal canal narrowing. L5-S1: Mild disc space height loss. 3 mm disc bulge with mild bilateral neural foraminal narrowing. No spinal canal narrowing. Moderate bilateral facet arthrosis. Atherosclerosis aortoiliac arteries. Several bilateral renal cysts suspected but indeterminate. Impression: L3-L5 solid fusion construct as above. Multilevel lumbar disc disease, most pronounced at L2-L3 where there is at least moderate spinal canal narrowing as well as severe bilateral neural foraminal narrowing. Suspected bilateral renal cysts but ultimately indeterminate. Further characterization with renal sonogram recommended. Electronically signed by: Ronald Barboza MD 02/12/2019 2:25 PM HEALTH PROFESSOR
== END | disposition home or self-care (01) ==
LOC: CT 09:43
PROVIDERS: ATTEND Family Medicine
DX: M48.061 Spinal stenosis, lumbar region without neurogenic claudication (principal)

== ENCOUNTER → 2019-05-17 | Outpatient (CLI) | payer OTHER | LOC: GMAM 10:34 | PROVIDERS: ATTEND Family Medicine | DX: E03.9 Hypothyroidism, unspecified (principal); I10 Essential (primary) hypertension ==

== ENCOUNTER → 2019-11-18 | Outpatient (CLI) | payer OTHER | END | disposition home or self-care (01) | LOC: GMAM 10:18 | PROVIDERS: ATTEND Family Medicine | DX: E03.9 Hypothyroidism, unspecified (principal) ==

== ENCOUNTER → 2020-02-12 | Outpatient (CLI) | payer OTHER | LOC: GMAM 16:58 | PROVIDERS: ATTEND Family Medicine | DX: R10.12 Left upper quadrant pain (principal) ==

== ENCOUNTER → 2020-02-14 | Outpatient (CLI) | payer OTHER ==
--- NOTE | 2020-02-14 15:40 | CT ---
CT ABDOMEN PELVIS WITHOUT THEN WITH IV CONTRAST HISTORY: 79 years Male [facility] PA[facility] COMPARISON: CT lumbar spine dated February 12, 2019. TECHNIQUE: Helical tomographic images of the abdomen and pelvis were obtained after the administration of intravenous contrast per facility protocol. Coronal and sagittal reformatted images were also provided. This exam was performed according to our departmental dose-optimization program, which includes automated exposure control, adjustment of the mA and/or kV according to patient size and/or use of iterative reconstruction technique. FINDINGS: Included thorax: Expected dependent atelectatic changes. Calcified granuloma in the left lower lobe. Small hiatal hernia. Liver: Subcentimeter hypoattenuating lesions scattered within the liver are too small to adequately characterize but statistically likely represents a benign lesions such as hepatic cysts and/or hemangiomas. No enhancing liver lesion identified. Gallbladder and biliary ducts: Gallbladder is surgically absent. Mild prominence of the common bile duct likely represents reservoir effect. No choledocholithiasis or intrahepatic ductal dilatation observed. Pancreas: Unremarkable. Spleen: Unremarkable. Incidental small accessory splenule. Adrenal glands: Unremarkable. Kidneys and ureters: 2 simple appearing cysts in the right kidney, and 1 simple appearing cyst in the left kidney. Left renal cyst (largest) measures up to 4.0 cm in diameter. Kidneys and ureters are otherwise unremarkable. Urinary bladder: Unremarkable. Reproductive organs: Prostate appears enlarged. Bowel: Multiple scattered colonic diverticula. No focal bowel wall thickening or pericolonic inflammatory stranding identified. No evidence of obstruction. Appendix is not seen and may be absent. Lymph nodes: No lymphadenopathy detected. Peritoneal cavity: No free intraperitoneal fluid or free air detected. Vessels: There are scattered atherosclerotic changes noted, including involvement of the coronary arteries. Abdominal wall: No acute process detected. Bones: No acute process detected. Multilevel degenerative changes again seen in the lumbar spine is seen to better advantage on the prior comparison study. IMPRESSION: Hiatal hernia. Simple appearing renal cysts (Bosniak grade 1). Probable prostatomegaly. Additional incidental findings as discussed. Electronically signed by: Rohan Lay MD 02/14/2020 3:38 PM [employer]
== END ==
LOC: CT 09:03
PROVIDERS: ATTEND Family Medicine
DX: K44.9 Diaphragmatic hernia without obstruction or gangrene (principal); N28.1 Cyst of kidney, acquired; N40.0 Benign prostatic hyperplasia without lower urinary tract symptoms; M47.9 Spondylosis, unspecified